=== PATIENT | male | born 1960 | race Caucasian/White ===

== ENCOUNTER 2017-01-14 16:46 | Emergency (ER) | payer OTHER ==
[2017-01-14 21:18] LABS: HEMOGLOBIN 12.4 gm/dl (14.0-17.5); RED BLOOD COUNT 4.02 M/UL (4.20-5.50); WHITE BLOOD COUNT 16.7 K/UL (4.5-11.0)
[2017-01-14 21:39] LABS: BUN/CREATININE RATIO 15 (0-10)
[2017-02-20] MEDS ORDERED: PEPCID20 MG PO (06:51)
[2017-03-07] MEDS ORDERED: DIALYVITE 8000.8 MG PO (07:58)
[2017-03-07] MEDS ORDERED: ROBITUSSIN100 MG/5 M PO (07:59)
[2017-03-07] MEDS ORDERED: IPRAT-ALBUT 0.5-3 ML INH (08:00)
[2017-03-07] MEDS ORDERED: NORCO 7.5-3251 EACH PO (10:29)
== END 2017-01-14 23:33 | disposition home or self-care (01) ==
LOC: ER1 16:46
PROVIDERS: Emergency Medicine
DX: J18.9 Pneumonia, unspecified organism (principal); F17.200 Nicotine dependence, unspecified, uncomplicated
CPT/HCPCS: 36415; 71010; 80053; 82550; 82553; 83605; 83874; 83880; 84484; 85025; 87040; 93005; 94640; 94664; 96361; 96374; 99285; J2930

== ENCOUNTER 2017-02-08 20:15 | Inpatient (IN) | payer OTHER ==
[~2017-02-08] VITALS: Ht 172.7 cm; Wt 59.1 kg
[2017-02-09 01:31] LABS: RED BLOOD COUNT 4.21 M/UL (4.20-5.50); WHITE BLOOD COUNT 10.5 K/UL (4.5-11.0)
[2017-02-09 02:29] LABS: BUN/CREATININE RATIO 14 (0-10)
[2017-02-11 05:16] LABS: HEMOGLOBIN 11.6 gm/dl (14.0-17.5); RED BLOOD COUNT 3.86 M/UL (4.20-5.50); WHITE BLOOD COUNT 10.9 K/UL (4.5-11.0)
[2017-02-11 05:36] LABS: BUN/CREATININE RATIO 10 (0-10)
[2017-02-20] MEDS ORDERED: PEPCID20 MG PO (06:51)
[2017-03-07] MEDS ORDERED: DIALYVITE 8000.8 MG PO (07:58)
[2017-03-07] MEDS ORDERED: ROBITUSSIN100 MG/5 M PO (07:59)
[2017-03-07] MEDS ORDERED: IPRAT-ALBUT 0.5-3 ML INH (08:00)
[2017-03-07] MEDS ORDERED: NORCO 7.5-3251 EACH PO (10:29)
== END 2017-02-13 18:11 | disposition short-term general hospital (02) | DRG 871 ==
LOC: ER1 20:15 → ZEROF 02-09 04:08 → M/S 02-09 04:08
PROVIDERS: Internal Medicine; Internal Medicine Pulmonary Disease; Physician Assistant; ADMIT Hospitalist
PROC: 0BB38ZX Excision of Right Main Bronchus, Via Natural or Artificial Opening Endoscopic, Diagnostic (ICD-10-PCS; principal; 2017-02-11 07:45)
PROC: 0B938ZX Drainage of Right Main Bronchus, Via Natural or Artificial Opening Endoscopic, Diagnostic (ICD-10-PCS; principal; 2017-02-11 07:45)
DX: A41.9 Sepsis, unspecified organism (principal); J18.9 Pneumonia, unspecified organism; J96.01 Acute respiratory failure with hypoxia; D49.1 Neoplasm of unspecified behavior of respiratory system; J98.8 Other specified respiratory disorders; R50.9 Fever, unspecified; F17.210 Nicotine dependence, cigarettes, uncomplicated; R13.10 Dysphagia, unspecified; Z72.89 Other problems related to lifestyle; R19.7 Diarrhea, unspecified; R05 Cough; Z82.5 Family history of asthma and other chronic lower respiratory diseases; Z80.8 Family history of malignant neoplasm of other organs or systems
CPT/HCPCS: 36415; 36600; 71020; 71250; 71260; 80053; 82550; 82553; 82803; 83874; 83880; 84484; 85025; 85027; 85610; 85730; 87040; 87081; 88341; 88342; 92610; 93005; 94640; 94664; 96361; 96374; 99285; J2280; J3411; J7030; J7040; J7050; Q9962

== ENCOUNTER → 2017-02-18 | Outpatient (CLI) | payer OTHER ==
[~2017-02-18] MED LIST: DIALYVITE 8000.8 MG PO; IPRAT-ALBUT 0.5-3 ML INH; NORCO 7.5-3251 EACH PO; PEPCID20 MG PO; ROBITUSSIN100 MG/5 M PO
== END ==
LOC: HEART 5 10:45
DX: J18.9 Pneumonia, unspecified organism (principal); Z13.89 Encounter for screening for other disorder
CPT/HCPCS: 71020-FX

== ENCOUNTER → 2017-02-20 | Day surgery (SDC) | payer OTHER | END | disposition home or self-care (01) | LOC: OR 06:23 | PROVIDERS: Internal Medicine Pulmonary Disease | PROC: 0BJ08ZZ Inspection of Tracheobronchial Tree, Via Natural or Artificial Opening Endoscopic (ICD-10-PCS; principal; 2017-02-20 07:30) | DX: D3A.8 Other benign neuroendocrine tumors (principal); K21.9 Gastro-esophageal reflux disease without esophagitis; J44.9 Chronic obstructive pulmonary disease, unspecified; M19.90 Unspecified osteoarthritis, unspecified site; F17.210 Nicotine dependence, cigarettes, uncomplicated; Z79.891 Long term (current) use of opiate analgesic | CPT/HCPCS: J7120 ==

== ENCOUNTER → 2017-03-07 | Day surgery (SDC) | payer OTHER | END | disposition home or self-care (01) | LOC: OR 07:00 | PROVIDERS: Surgery | PROC: 05HM33Z Insertion of Infusion Device into Right Internal Jugular Vein, Percutaneous Approach (ICD-10-PCS; 2017-03-07) | PROC: B513YZA Fluoroscopy of Right Jugular Veins using Other Contrast, Guidance (ICD-10-PCS; 2017-03-07) | PROC: 0JH60XZ Insertion of Tunneled Vascular Access Device into Chest Subcutaneous Tissue and Fascia, Open Approach (ICD-10-PCS; principal; 2017-03-07 08:45) | DX: C34.91 Malignant neoplasm of unspecified part of right bronchus or lung (principal); K21.9 Gastro-esophageal reflux disease without esophagitis; J44.9 Chronic obstructive pulmonary disease, unspecified; Z79.891 Long term (current) use of opiate analgesic; Z79.899 Other long term (current) drug therapy; Z87.891 Personal history of nicotine dependence; Z87.01 Personal history of pneumonia (recurrent) | CPT/HCPCS: 71010; 77001; C1769; C1788; J0690; J1644; J2250; J3010; J3370; J7030; J7120 ==

== ENCOUNTER → 2017-03-08 | Outpatient (CLI) | payer OTHER | LOC: EMI 03-07 10:00 → MRI 09:32 | DX: C34.01 Malignant neoplasm of right main bronchus (principal) | CPT/HCPCS: 70553; A9577 ==